=== PATIENT | male | born 1950 | race Caucasian/White ===

== ENCOUNTER → 2021-05-02 | Outpatient (CLI) | payer MEDICARE | END | disposition home or self-care (01) | LOC: RAH 09:59 | PROVIDERS: ATTEND Internal Medicine Gastroenterology | DX: R13.10 Dysphagia, unspecified (principal); R63.30 Feeding difficulties, unspecified | CPT/HCPCS: 74230; 92611 ==

== ENCOUNTER → 2021-05-03 | Outpatient (CLI) | payer MEDICARE | END | disposition home or self-care (01) | LOC: RAH 09:35 → EDUNIT# 10:00 | PROVIDERS: ATTEND Internal Medicine Gastroenterology | DX: K21.9 Gastro-esophageal reflux disease without esophagitis (principal); R13.10 Dysphagia, unspecified; R63.30 Feeding difficulties, unspecified; K22.5 Diverticulum of esophagus, acquired | CPT/HCPCS: 74220 ==

== ENCOUNTER → 2021-07-25 | Outpatient (CLI) | payer MEDICARE ==
[~2021-07-25] MED LIST: GADOTERATE MEGLUMINE 10 MMOL/20 ML VIAL IV ONE
== END | disposition home or self-care (01) ==
LOC: RAH 10:00
PROVIDERS: ATTEND Psychiatry & Neurology Neurology
DX: G35 Multiple sclerosis (principal); G31.9 Degenerative disease of nervous system, unspecified; I67.82 Cerebral ischemia; M47.812 Spondylosis without myelopathy or radiculopathy, cervical region; M50.21 Other cervical disc displacement, high cervical region; S12.9XXS Fracture of neck, unspecified, sequela
CPT/HCPCS: 70553; 72156; A9575

== ENCOUNTER → 2022-05-31 | Outpatient (CLI) | payer MEDICARE | END | disposition home or self-care (01) | LOC: RAH 13:12 | PROVIDERS: ATTEND Physical Medicine & Rehabilitation | DX: S14.101A Unspecified injury at C1 level of cervical spinal cord, initial encounter (principal); M48.07 Spinal stenosis, lumbosacral region; M48.02 Spinal stenosis, cervical region; M54.51 Vertebrogenic low back pain; M54.2 Cervicalgia; X58.XXXA Exposure to other specified factors, initial encounter; Y93.89 Activity, other specified; Y92.89 Other specified places as the place of occurrence of the external cause; Y99.8 Other external cause status | CPT/HCPCS: 72040; 72114 ==

== ENCOUNTER → 2023-01-30 | Outpatient (CLI) | payer MEDICARE | END | disposition home or self-care (01) | LOC: RAH 14:27 | PROVIDERS: ATTEND Neurological Surgery | DX: M85.88 Other specified disorders of bone density and structure, other site (principal); M41.55 Other secondary scoliosis, thoracolumbar region | CPT/HCPCS: 77080 ==

== ENCOUNTER → 2023-02-06 | Outpatient (CLI) | payer MEDICARE | END | disposition home or self-care (01) | LOC: RAH 13:50 | PROVIDERS: ATTEND Neurological Surgery | DX: M47.14 Other spondylosis with myelopathy, thoracic region (principal); G95.9 Disease of spinal cord, unspecified; M50.023 Cervical disc disorder at C6-C7 level with myelopathy; M47.12 Other spondylosis with myelopathy, cervical region | CPT/HCPCS: 72125; 72128 ==

== ENCOUNTER → 2023-07-15 | Outpatient (CLI) | payer MEDICARE | END | disposition home or self-care (01) | LOC: RAH 15:27 | PROVIDERS: ATTEND Neurological Surgery | DX: M47.812 Spondylosis without myelopathy or radiculopathy, cervical region (principal); M40.03 Postural kyphosis, cervicothoracic region; M85.88 Other specified disorders of bone density and structure, other site | CPT/HCPCS: 72040 ==

== ENCOUNTER → 2023-10-28 | Outpatient (CLI) | payer MEDICARE ==
[2023-10-28 14:49] LABS: BASOPHILS # (AUTO) 0.05 K/uL (0.00-0.20); BASOPHILS % (AUTO) 0.5 % (0.0-5.0); EOSINOPHILS # (AUTO) 0.03 K/uL (0.00-0.70); EOSINOPHILS % (AUTO) 0.3 % (0.0-8.0); HEMATOCRIT 41.6 % (42-54); IMMATURE GRANULOCYTE ABSOLUTE 0.06 K/uL (0-1); LYMPHOCYTES # (AUTO) 0.7 K/uL (1.0-4.8); LYMPHOCYTES % (AUTO) 7.9 % (21.0-51.0); MEAN CORPUSCULAR HEMOGLOBIN 29.6 pg (27.0-33.0); MEAN CORPUSCULAR HGB CONC 32.9 g/dL (32.0-36.0); MEAN CORPUSCULAR VOLUME 89.8 fL (79-99); MONOCYTES # (AUTO) 1.2 K/uL (0.1-1.0); MONOCYTES % (AUTO) 12.7 % (3.0-13.0); NEUTROPHILS # (AUTO) 7.3 K/uL (1.8-7.7); PLATELET COUNT (AUTO) 393 K/uL (130-400); RED BLOOD CELL COUNT(AUTO) 4.63 MIL/uL (4.50-6.20); RED CELL DISTRIBUTION WIDTH 13.5 % (11.0-15.5); WHITE BLOOD COUNT (AUTO) 9.3 K/uL (4.8-10.8)
[2023-10-28 15:03] LABS: APPEARANCE,URINE CLEAR (CLEAR); BILIRUBIN,URINE NEGATIVE (NEGATIVE); COLOR,URINE LIGHT-YELLOW (YELLOW); GLUCOSE, URINE (UA) NEGATIVE (NEGATIVE); KETONES,URINE NEGATIVE (NEGATIVE); LEUKOCYTE ESTERASE ,URINE NEGATIVE Leu/uL (NEGATIVE); NITRATE,URINE NEGATIVE (NEGATIVE); OCCULT BLOOD,URINE NEGATIVE (NEGATIVE); PROTEIN,URINE 30 mg/dL (NEGATIVE)
[2023-10-28 15:04] LABS: ADD UA MICROSCOPIC YES
[2023-10-28 15:05] LABS: SODIUM,URINE RANDOM 97 mmol/l (40-220)
[2023-10-28 15:08] LABS: MUCUS,URINE RARE LPF (None Seen); RBC,URINE 0-1 /HPF (0-1); SQUAMOUS EPITHELIAL CELL,UR RARE /HPF (0-2); WBC,URINE 0-1 /HPF (0-1)
[2023-10-28 15:22] LABS: ALBUMIN 3.9 g/dL (3.5-5.0); CREATININE 1.1 mg/dL (0.5-1.3); PHOSPHORUS 3.4 mg/dL (2.5-4.9); POTASSIUM 4.8 mmol/L (3.5-5.1)
== END | disposition home or self-care (01) ==
LOC: LAB 14:02
PROVIDERS: ATTEND Internal Medicine Nephrology
DX: N18.1 Chronic kidney disease, stage 1 (principal); N39.0 Urinary tract infection, site not specified
CPT/HCPCS: 36415; 80069; 81001; 83935; 84300; 85025

== ENCOUNTER 2023-11-05 11:18 | Observation (INO) | payer MEDICARE ==
[2023-11-05] VITALS (19 sets, daily range): BP systolic 114–158; BP diastolic 58–96; PULSE 78–92; RESP 9–19; TEMP 97.2–98.6; O2SAT 95–96
[~2023-11-05] VITALS: Ht 172.7 cm; Wt 76.4 kg
[2023-11-05] MEDS: teTANUS/diphthERIA TOXOID [ADULT] 0.5 ML VIAL IM ONE (11:29)
[2023-11-05] MEDS: ceFAZolin SODIUM 1 GM VIAL IVPB SCH (11:34)
[2023-11-05 11:43] LABS: BASOPHILS # (AUTO) 0.05 K/uL (0.00-0.20); BASOPHILS % (AUTO) 0.7 % (0.0-5.0); EOSINOPHILS # (AUTO) 0.08 K/uL (0.00-0.70); HEMATOCRIT 40.6 % (42-54); IMMATURE GRANULOCYTE ABSOLUTE 0.06 K/uL (0-1); LYMPHOCYTES # (AUTO) 0.8 K/uL (1.0-4.8); LYMPHOCYTES % (AUTO) 10.2 % (21.0-51.0); MEAN CORPUSCULAR HGB CONC 33.7 g/dL (32.0-36.0); MEAN CORPUSCULAR VOLUME 85.8 fL (79-99); MONOCYTES # (AUTO) 1.2 K/uL (0.1-1.0); MONOCYTES % (AUTO) 15.1 % (3.0-13.0); NEUTROPHILS # (AUTO) 5.5 K/uL (1.8-7.7); NEUTROPHILS % (AUTO) 72.2 % (40.0-77.0); PLATELET COUNT (AUTO) 399 K/uL (130-400); RED BLOOD CELL COUNT(AUTO) 4.73 MIL/uL (4.50-6.20); RED CELL DISTRIBUTION WIDTH 13.6 % (11.0-15.5); WHITE BLOOD COUNT (AUTO) 7.7 K/uL (4.8-10.8)
[2023-11-05 11:59] LABS: ALBUMIN 3.9 g/dL (3.5-5.0); BILIRUBIN,TOTAL 0.6 mg/dL (0.2-1.0); POTASSIUM 3.7 mmol/L (3.5-5.1); TOTAL PROTEIN, SERUM 7.3 g/dL (6.0-8.3)
[2023-11-05 12:03] LABS: INR 0.99 (0.85-1.15); PROTHROMBIN TIME 10.7 SEC (9.6-11.6)
[2023-11-05 12:05] LABS: PARTIAL THROMBOPLASTIN TIME 26.2 SEC (26.3-35.5)
[2023-11-05] MEDS ORDERED: acetaMINOPHEN 325 MG TAB PO PRN ×2 (13:30)
[2023-11-05] MEDS ORDERED: morPHINE 2 MG SYG IV PRN (13:30)
[2023-11-05] MEDS: hydroMORPHone 1 MG INJ IV PRN (15:09)
[2023-11-05] MEDS: ondanSETRON 4MG INJ IV PRN (15:09)
[2023-11-05] MEDS: 0.9%NACL 1000ML 1,000 ML IV SCH ×2 (15:19→18:00)
[2023-11-05] MEDS ORDERED: BUPIvacaine/PF 0.5% 30ML VIAL ONE (15:53)
[2023-11-05] MEDS ORDERED: ceFAZolin SODIUM 1 GM VIAL ONE (15:53)
[2023-11-05] MEDS ORDERED: GLYCOPYRROLATE 0.2 MG/ML 5 ML VIAL ONE (15:56)
[2023-11-05] MEDS ORDERED: MIDAZOLAM HCL 1 MG/ML 2ML VIAL ONE ×2 (15:56→16:28)
[2023-11-05] MEDS ORDERED: ketaMINE 50MG/ML SYRINGE 50 MG/ML DISP.SYRIN ONE (16:00)
[2023-11-05] MEDS ORDERED: LIDOCAINE HCL 1% 10 ML VIAL ONE (16:11)
[2023-11-05] MEDS ORDERED: DiphenhydrAMINE HCL 25 MG CAPSULE PO PRN (18:00)
[2023-11-05] MEDS: ceFAZolin SODIUM 2 GM VIAL IVPB SCH (18:00)
[2023-11-05] MEDS: FAMOTIDINE 20MG VIAL IV SCH (21:23)
[2023-11-05] MEDS: ketOROlac 15MG/ML VIAL (15MG/ML) IV PRN (21:28)
[2023-11-05] MEDS ORDERED: hydrALAZine 20MG/ML VIAL IV PRN (22:30)
[2023-11-06] VITALS: BP 122/63; PULSE 74; RESP 18; TEMP 97.2
[2023-11-06] MEDS: HYDROcodone/APAP 5/325 1 TAB TABLET PO PRN ×2 (00:41→09:55)
[2023-11-06 04:00] VITALS: BP 123/72; PULSE 76; RESP 18; TEMP 98
[2023-11-06 05:31] LABS: BASOPHILS # (AUTO) 0.06 K/uL (0.00-0.20); BASOPHILS % (AUTO) 0.7 % (0.0-5.0); EOSINOPHILS # (AUTO) 0.12 K/uL (0.00-0.70); EOSINOPHILS % (AUTO) 1.4 % (0.0-8.0); HEMATOCRIT 38.9 % (42-54); IMMATURE GRANULOCYTE ABSOLUTE 0.06 K/uL (0-1); LYMPHOCYTES # (AUTO) 0.8 K/uL (1.0-4.8); MEAN CORPUSCULAR HEMOGLOBIN 29.2 pg (27.0-33.0); MEAN CORPUSCULAR HGB CONC 32.4 g/dL (32.0-36.0); MEAN CORPUSCULAR VOLUME 90.3 fL (79-99); MONOCYTES # (AUTO) 1.4 K/uL (0.1-1.0); MONOCYTES % (AUTO) 15.8 % (3.0-13.0); NEUTROPHILS # (AUTO) 6.4 K/uL (1.8-7.7); NEUTROPHILS % (AUTO) 72.4 % (40.0-77.0); PLATELET COUNT (AUTO) 328 K/uL (130-400); RED BLOOD CELL COUNT(AUTO) 4.31 MIL/uL (4.50-6.20); RED CELL DISTRIBUTION WIDTH 13.6 % (11.0-15.5); WHITE BLOOD COUNT (AUTO) 8.9 K/uL (4.8-10.8)
[2023-11-06 06:08] LABS: ALBUMIN 3.2 g/dL (3.5-5.0); BILIRUBIN,TOTAL 0.4 mg/dL (0.2-1.0); POTASSIUM 4.1 mmol/L (3.5-5.1); TOTAL PROTEIN, SERUM 6.1 g/dL (6.0-8.3)
[2023-11-06 08:00] VITALS: BP 125/65; PULSE 85; RESP 19; TEMP 98.7; O2SAT 96
[2023-11-06] MEDS ORDERED: CEPH500B PO (08:33)
[2023-11-06] MEDS: 0.9%NACL 1000ML 1,000 ML IV SCH (09:30)
[2023-11-06] MEDS: amLODIPine 5 MG TAB PO SCH (09:53)
== END 2023-11-06 11:48 | disposition home or self-care (01) ==
LOC: EDH 11:18 → INTOOBSV 13:11 → EDHIP 13:11 → 4CH 18:28
PROVIDERS: ADMIT Orthopaedic Surgery; ATTEND Orthopaedic Surgery
DX: S68.021A Partial traumatic metacarpophalangeal amputation of right thumb, initial encounter (principal); I10 Essential (primary) hypertension; J44.9 Chronic obstructive pulmonary disease, unspecified; G47.00 Insomnia, unspecified; K59.00 Constipation, unspecified; G89.29 Other chronic pain; Z87.891 Personal history of nicotine dependence; Z86.2 Personal history of diseases of the blood and blood-forming organs and certain disorders involving the immune mechanism; Z79.899 Other long term (current) drug therapy; W27.0XXA Contact with workbench tool, initial encounter; Y93.89 Activity, other specified; Y92.098 Other place in other non-institutional residence as the place of occurrence of the external cause; Y99.0 Civilian activity done for income or pay
CPT/HCPCS: 26236; 96365; 96375; 99284; 84484; 80053 ×2; 85025 ×2; 85610; 85730; 86850; 86900; 86901; 36415 ×2; 88302; 88311; 90714; 73130; 90471; 96376 ×2; 96366; 96367; G0378 ×18; C1729; J3490 ×5; J0690 ×3; J1170; J2250 ×2; J2405; J0665; J1885 ×2; A6445 ×2; A6223; A4649 ×2; A4930

== ENCOUNTER → 2024-01-20 | Outpatient (CLI) | payer MEDICARE ==
[~2024-01-20] MED LIST changes: +CEPH500B PO; -GADOTERATE MEGLUMINE 10 MMOL/20 ML VIAL IV ONE
== END | disposition home or self-care (01) ==
LOC: RAH 08:37
PROVIDERS: ATTEND Physical Medicine & Rehabilitation
DX: M47.816 Spondylosis without myelopathy or radiculopathy, lumbar region (principal); M48.07 Spinal stenosis, lumbosacral region; M54.2 Cervicalgia; G89.4 Chronic pain syndrome; G35 Multiple sclerosis
CPT/HCPCS: 72114

== ENCOUNTER → 2024-01-29 | Outpatient (CLI) | payer MEDICARE | END | disposition home or self-care (01) | LOC: RAH 12:48 | PROVIDERS: ATTEND Physical Medicine & Rehabilitation | DX: M47.817 Spondylosis without myelopathy or radiculopathy, lumbosacral region (principal); M48.07 Spinal stenosis, lumbosacral region; M51.26 Other intervertebral disc displacement, lumbar region; M51.369 Other intervertebral disc degeneration, lumbar region without mention of lumbar back pain or lower extremity pain | CPT/HCPCS: 72148 ==

== ENCOUNTER → 2024-03-06 | Outpatient (CLI) | payer MEDICARE ==
[2024-03-06 13:53] LABS: BASOPHILS # (AUTO) 0.06 K/uL (0.00-0.20); BASOPHILS % (AUTO) 0.7 % (0.0-5.0); EOSINOPHILS # (AUTO) 0.16 K/uL (0.00-0.70); EOSINOPHILS % (AUTO) 1.9 % (0.0-8.0); IMMATURE GRANULOCYTE ABSOLUTE 0.07 K/uL (0-1); LYMPHOCYTES % (AUTO) 11.2 % (21.0-51.0); MEAN CORPUSCULAR HEMOGLOBIN 29.5 pg (27.0-33.0); MEAN CORPUSCULAR HGB CONC 32.4 g/dL (32.0-36.0); MEAN CORPUSCULAR VOLUME 90.9 fL (79-99); MONOCYTES # (AUTO) 1.1 K/uL (0.1-1.0); NEUTROPHILS # (AUTO) 6.1 K/uL (1.8-7.7); NEUTROPHILS % (AUTO) 72.4 % (40.0-77.0); PLATELET COUNT (AUTO) 315 K/uL (130-400); RED BLOOD CELL COUNT(AUTO) 4.95 MIL/uL (4.50-6.20); RED CELL DISTRIBUTION WIDTH 14.8 % (11.0-15.5); WHITE BLOOD COUNT (AUTO) 8.5 K/uL (4.8-10.8)
[2024-03-06 14:00] LABS: ALBUMIN 3.7 g/dL (3.5-5.0); CREATININE 1.3 mg/dL (0.5-1.3); PHOSPHORUS 2.9 mg/dL (2.5-4.9); POTASSIUM 4.1 mmol/L (3.5-5.1)
--- NOTE | 2024-03-06 14:11 | HMCIMG ---
CERV SPINE 2-3VWS HISTORY: Cervical fusion syndrome COMPARISON: None FINDINGS: 3 images of cervical spine were obtained. Orthopedic fixation plates and screws are seen traversing the C4, C5, C6 and C7 anteriorly with disc fusions. Postop changes are seen of the cervical thoracic spine extensively posteriorly. Due to extensive postop changes, the study is limited. There is straightening of normal lordotic curvature which may be related to muscle spasm or positioning. No loss of vertebral height is seen. No fracture or dislocation is seen. Degenerative changes are seen. IMPRESSION: 1. No fracture is seen. DJD with extensive postop changes. This is limiting evaluation.
== END | disposition home or self-care (01) ==
LOC: LAB 10:00
PROVIDERS: ATTEND Physical Medicine & Rehabilitation
DX: M47.812 Spondylosis without myelopathy or radiculopathy, cervical region (principal); N18.1 Chronic kidney disease, stage 1; Q76.1 Klippel-Feil syndrome
CPT/HCPCS: 36415; 72040; 80069; 83935; 84300; 85025

== ENCOUNTER → 2024-06-01 | Outpatient (CLI) | payer MEDICARE ==
--- NOTE | 2024-06-01 15:45 | HMCIMG ---
US ARTERIAL BILAT LOW EXT DUPL HISTORY: Atherosclerosis COMPARISON: None TECHNIQUE: Bilateral lower extremity arterial Doppler ultrasound study was performed. FINDINGS: Normal triphasic arterial waveforms are noted in the common femoral, deep femoral, superficial femoral, popliteal, posterior tibial and dorsalis pedal arteries. On the right, the peak systolic velocity of the common femoral artery is 102 cm/s, the proximal femoral artery is 85 cm/s, the mid femoral artery is 102 cm/s, the distal femoral artery is 84 cm/s, the proximal popliteal artery is 98 cm/s, the distal popliteal artery is 59 cm/s, the anterior tibial artery is 34 cm/s, the posterior tibial artery artery is 73 cm/s,and the dorsalis pedal artery is 21 cm/s. On the left, the peak systolic velocity of the common femoral artery is 87 cm/s, the proximal femoral artery is 84 cm/s, the mid femoral artery is 98 cm/s, the distal femoral artery is 123 cm/s, the proximal popliteal artery is 62 cm/s, the distal popliteal artery is 91 cm/s, the anterior tibial artery is 87 cm/s, the posterior tibial artery artery is 107 cm/s,and the dorsalis pedal artery is 80 cm/s. IMPRESSION: 1. Atherosclerotic disease. 2. Otherwise normal triphasic arterial waveforms noted of the lower extremity artery system.
== END | disposition home or self-care (01) ==
LOC: RAH 14:37
PROVIDERS: ATTEND Physical Medicine & Rehabilitation
DX: I70.0 Atherosclerosis of aorta (principal); I70.90 Unspecified atherosclerosis; R60.0 Localized edema
CPT/HCPCS: 93925

== ENCOUNTER 2024-10-31 18:19 | Inpatient (IN) | payer MEDICARE ==
[~2024-10-31] VITALS: Ht 172.7 cm; Wt 83.0 kg
--- NOTE | 2024-10-31 18:34 | ERN ---
ED Note History of Present Illness Stated Complaint: LOWER EXTREMITY PAIN Chief Complaint: LOWER EXTREMITY EDEMA Time Seen by MD: 18:26 Dictation: PATIENT IS A 74-YEAR-OLD MALE COMING IN TODAY WITH ERYTHEMA TENDERNESS TO THE RIGHT CALF AND SWELLING ONSET FOR THE LAST 2-3 DAYS. NO FEVER NO CHILLS NO NAUSEA VOMITING. STATES HE DOES NOT HAVE ANY HISTORY OF DIABETES. DISCOLORATION TO BOTH LOWER EXTREMITIES CONSISTENT WITH VENOUS INSUFFICIENCY. STATES HE HAS A AN APPOINTMENT TODAY WITH HIS PRIMARY CARE DOCTOR HOWEVER HIS DOCTOR WAS OUT SICK AND HE CAME TO THE EMERGENCY ROOM. Allergies: Coded Allergies: No Known Drug Allergies (Unverified Allergy, Unknown, 11/05/23) Home Meds Active Scripts Cephalexin Monohydrate (Keflex) 500 Mg Cap, 500 MG PO Q8H for 7 Days, #21 CAP 0 Refills Prov:JENNIFER JOSHI MD 11/06/23 Past Medical History Past Medical History: High Cholesterol, Hypertension, Other Additional Past Medical Hx: fractured neck Surgical History: Other Surgical History Other: neck sx RN Note Reviewed/Agreed w/PFSH: Yes Review of System Dictation CONSTITUTIONAL: NEGATIVE EXCEPT FOR HPI HEAD/FACE: NEGATIVE EXCEPT FOR HPI EENT: NEGATIVE EXCEPT FOR HPI RESPIRATORY: NEGATIVE EXCEPT FOR HPI GASTROINTESTINAL/ABDOMINAL: NEGATIVE EXCEPT FOR HPI GENITOURINARY: NEGATIVE EXCEPT FOR HPI MUSCULOSKELETAL: NEGATIVE EXCEPT FOR HPI ERYTHEMA SWELLING RIGHT CALF FROM LOWER LEG DOWN INTEGUMENTARY: NEGATIVE EXCEPT FOR HPI NEUROLOGICAL/PSYCH: NEGATIVE EXCEPT FOR HPI HEMATOLOGIC/LYMPHATIC: NEGATIVE EXCEPT FOR HPI ALL SYSTEMS NEGATIVE, EXCEPT NOTED ABOVE. 13 POINT REVIEW OF SYSTEMS ASSESSED AND ALL NEGATIVE EXCEPT FOR ABOVE. Initial Vital Sign VS Vital Signs Date Time Temp Pulse Resp B/P (MAP) Pulse Ox O2 Delivery O2 Flow Rate FiO2 10/31/24 18:23 97.9 85 16 133/72 95 Room Air 0 10/31/24 18:26 21 Physical Exam Dictation VITAL SIGNS REVIEWED GENERAL APPEARANCE: ALERT, ORIENTED X 3, MODERATE ACUTE DISTRESS, WELL DEVELOPED, NOURISHED. HEAD AND FACE: NON-TRAUMATIC. EYES: PERRL, PINK CONJUNCTIVAS, EYELID NO TRAUMA, ANTERIOR CHAMBER WITH ARCUS SENILIS. EARS: PINNAS INTACT AND NO SIGNS OF TRAUMA OR ERYTHEMA EAR CANALS CLEAR AND NO DISCHARGE TM NO ERYTHEMA NOSE: NO DISCHARGE, NO BLEEDING. OROPHARYNX: MOUTH NORMAL, TONGUE PINK, PHARYNX CLEAR,NO ERYTHEMA, TONSILS NO EXUDATES, NO ABSCESSES NOTED, MUCOUS MEMBRANE MOIST NECK: SUPPLE, NON-TENDER, NO THYROMEGALY, NO MASSES, NO JVD, NO BRUITS BREAST:DEFERRED CHEST:NO TENDERNESS, NO CREPITUS, NO PARADOXICAL MOVEMENT, NO RETRACTIONS LUNGS:CLEAR, WELL-VENTILATED, SYMMETRIC, NO RALES, NO WHEEZING, NO RHONCHI, NO STRIDOR, GOOD BREATH SOUNDS BILATERALLY HEART: REGULAR RATE, REGULAR RHYTHM, NO MURMUR, NO GALLOPS VASCULAR: NO PERIPHERAL EDEMA, ABDOMEN: SOFT, POSITIVE BOWEL SOUNDS, NONDISTENDED, NO GUARDING, NONTENDER, NO REBOUND, NO MASSES NO HEPATOMEGALY, NO SPLENOMEGALY, NO SALINAS'S SIGN, NO HERNIAS. RECTAL: DEFERRED GENITAL: DEFERRED NEUROLOGICAL: NORMAL SPEECH, MOTOR FUNCTION INTACT, SENSORY FUNCTION INTACT MUSCULOSKELETAL: NECK NONTENDER, FULL RANGE OF MOTION, BACK NONTENDER, FULL RANGE OF MOTION, EXTREMITIES: RIGHT LOWER LEG WITH A EAR THREE SWELLING AND CALF TENDERNESS. NEGATIVE HOMANS SIGN. DISTAL NEUROVASCULAR CMS INTACT SKIN: COLOR PINK, DRY, NO TURGOR, NO RASH, NO LACERATIONS, NO ABRASIONS, NO CONTUSIONS. DISCOLORATION NOTED TO BOTH LOWER EXTREMITIES CONSISTENT WITH VASCULAR INSUFFICIENCY LYMPHATIC: DEFERRED Results (Laboratory/Radiology) Laboratory/Radiology Laboratory Tests Test 10/31/24 18:32 White Blood Count 9.8 K/uL (4.8-10.8) Red Blood Count 4.51 MIL/uL (4.50-6.20) Hemoglobin 15.4 g/dL (14.0-18.0) Hematocrit 44.3 % (42-54) Mean Corpuscular Volume 98.2 fL (79-99) Mean Corpuscular Hemoglobin 34.1 pg (27.0-33.0) H Mean Corpuscular Hemoglobin Concent 34.8 g/dL (32.0-36.0) Red Cell Distribution Width 11.9 % (11.0-15.5) Platelet Count 318 K/uL (130-400) Mean Platelet Volume 8.6 fL (7.5-10.5) Immature Granulocyte % (Auto) 3.7 % (0-1) H Neutrophils (%) (Auto) 73.1 % (40.0-77.0) Lymphocytes (%) (Auto) 9.2 % (21.0-51.0) L Monocytes (%) (Auto) 12.0 % (3.0-13.0) Eosinophils (%) (Auto) 1.3 % (0.0-8.0) Basophils (%) (Auto) 0.7 % (0.0-5.0) Neutrophils # (Auto) 7.2 K/uL (1.8-7.7) Lymphocytes # (Auto) 0.9 K/uL (1.0-4.8) L Monocytes # (Auto) 1.2 K/uL (0.1-1.0) H Eosinophils # (Auto) 0.13 K/uL (0.00-0.70) Basophils # (Auto) 0.07 K/uL (0.00-0.20) Absolute Immature Granulocyte (auto 0.36 K/uL (0-1) Nucleated Red Blood Cells 0.0 % (0.0-0.19) Sodium Level 132 mmol/L (136-145) L Potassium Level 4.2 mmol/L (3.5-5.1) Chloride Level 96 mmol/L (101-111) L Carbon Dioxide Level 30 mmol/L (21-32) Blood Urea Nitrogen 16 mg/dL (7-18) Creatinine 1.1 mg/dL (0.5-1.3) Glomerular Filtration Rate Calc 71 mL/min (>90) Random Glucose 116 mg/dL (70-105) H Lactic Acid Level 1.5 mmol/L (0.8-2.5) Total Calcium 9.0 mg/dL (8.5-10.1) 115/DOPPLER ULTRASOUND RIGHT LEG DEMONSTRATES MCDONNELL'S CYST, NO DVT Labs Reviewed?: Yes ED Course ED Course Orders Procedure Category Date Status Time Us Venous Doppler US 10/31/24 Resulted Unilateral 18:28 Blood Cult ARSLAN 10/31/24 In Process 18:28 Lactic Acid LAB 10/31/24 Complete 18:28 Cbc With Differential LAB 10/31/24 In Process 18:28 Basic Metabolic Panel LAB 10/31/24 Complete 18:28 Clindamycin Ivpb PHA 10/31/24 Complete 600mg/50ml (Cleocin 19:11 0.9%Nacl 1000ml (Ns PHA 10/31/24 Complete 1000ml) 20:00 Admit Orders ADM 10/31/24 Verified 20:06 Edm Admit Bridge Order ADM 10/31/24 Verified 20:06 Current Medications Medications (Trade) Dose Ordered Sig/Smiley Route PRN Reason Start Time Stop Time Status Last Admin Dose Admin Clindamycin HCl/ Dextrose 50 ml @ 100 mls/hr ONCE STAT IV 10/31/24 19:11 10/31/24 19:40 DC 10/31/24 19:35 Sodium Chloride 1,000 ml @ 0 mls/hr ONCE ONCE IV 10/31/24 20:00 10/31/24 20:01 DC 10/31/24 19:55 Vital Signs Date Time Temp Pulse Resp B/P (MAP) Pulse Ox O2 Delivery O2 Flow Rate FiO2 10/31/24 19:59 98.2 82 16 132/70 96 Room Air* 0 21 10/31/24 18:26 97.9 85 16 133/72 95 Room Air* 0 21 10/31/24 18:23 97.9 85 16 133/72 95 Room Air 0 1934/SPOKE WITH PATIENT AT LENGTH AROUND CLINICAL FINDINGS TO INCLUDE DOPPLER ULTRASOUND. HE AGREES TO REMAIN IN HOSPITAL FOR TREATMENT OF HIS HYPONATREMIA AND CELLULITIS OF HIS RIGHT LEG. QUESTIONED ANSWER. 2004/SPOKE WITH [facility] HOSPITALIST REVIEWED ULTRASOUND LABS AND INTERVENTIO NS FOR HYPONATREMIA AND CELLULITIS HE AGREED TO ADMIT PATIENT. Medical Decision Making MDM MDM: DIFFERENTIAL DIAGNOSIS: DVT/CELLULITIS/ERYSIPELAS/ELECTROLYTE IMBALANCE/DEHYDRATION/SEPSIS RATIONALE: TESTS CONSIDERED AND ORDERED SECONDARY TO SHARED DECISION MAKING INCLUDE: ULTRASOUNDS/LABS PREVIOUS OUTSIDE RECORDS REVIEWED: OLD ER VISITS. RISK OF COMPLICATION AND/OR MORBIDITY OR MORTALITY OF PATIENT MANAGEMENT: NONE MEDICATIONS-PER MEDICATION RECONCILIATION NEED FOR HOSPITALIZATION: PATIENT DOES NOT MEET CRITERIA FOR HOSPITALIZATION. PATIENT REFUSES WISHED TO BE TREATED OUTPATIENT WITH CLINDAMYCIN NEED FOR EMERGENCY MAJOR/MINOR SURGERY: NO THERE ARE NO SOCIAL CONCERNS WITH THIS PATIENT. PRESCRIPTION DRUG MANAGEMENT CLINDAMYCIN PRESCRIPTIONS WILL INCLUDE SYMPTOMATIC CARE PATIENT'S PRIOR EXTERNAL MEDICAL RECORDS FROM OTHER ER VISITS WERE REVIEWED BY ME INDICATED. PRIOR TESTING AND RESULTS FROM PREVIOUS VISITS WERE REVIEWED. PRIOR TESTS WERE TAKEN INTO ACCOUNT WITH MEDICAL DECISION MAKING AND RESOURCE UTILIZATION, INDEPENDENT HISTORIAN/HISTORIANS WERE USED TO OBTAIN COMPLETE MEDICAL HISTORY. I INDEPENDENTLY INTERPRETED THE TEST THAT WERE PERFORMED, RESULTS WERE REVIEWED BY ME AND CONSIDERED FINDINGS ON RADIOLOGY IF ORDERED. MEDICAL MANAGEMENT AND EXAMINATION INTERPRETATION DISCUSSIONS WERE HAD BY ME WITH OTHER QUALIFIED HEALTHCARE PROFESSIONALS INDICATED FOR THE PATIENT'S CARE. DX & DISP Disposition: Discharge Departure Impression: Primary Impression: Cellulitis of right leg without foot Additional Impressions: Stage 2 chronic kidney disease, Hyponatremia, Hypochloremia, Congenital absence of one kidney Condition: Stable Referrals: RANGEL NEGRON (PCP) Time of Disposition: 19:39 I have reviewed the case, and I agree with, Diagnosis and Plan LACIE MENDOZA NP Oct 31, 2024 18:34
[2024-10-31 18:58] LABS: IMMATURE GRANULOCYTE ABSOLUTE 0.36 K/uL (0-1); NUCLEATED RED BLOOD CELLS 0.0 % (0.0-0.19); PLATELET COUNT (AUTO) 318 K/uL (130-400); RED BLOOD CELL COUNT(AUTO) 4.51 MIL/uL (4.50-6.20); RED CELL DISTRIBUTION WIDTH 11.9 % (11.0-15.5); WHITE BLOOD COUNT (AUTO) 9.8 K/uL (4.8-10.8)
[2024-10-31 19:09] LABS: CREATININE 1.1 mg/dL (0.5-1.3); GLOMERULAR FILTR. RATE CALC 71.0 mL/min (>90); GLUCOSE,RANDOM 116.0 mg/dL (70-105); SODIUM SERUM 132.0 mmol/L (136-145); UREA NITROGEN, BLOOD 16.0 mg/dL (7-18)
--- NOTE | 2024-10-31 19:22 | HMCIMG ---
EXAM: US for Deep Venous Thrombosis, right Lower Extremity. CLINICAL HISTORY: Leg Pain and Swelling TECHNIQUE: Real-time ultrasound scan of the veins of the right lower extremity with color Doppler flow, spectral waveform analysis and compression. COMPARISON: None provided. FINDINGS: DEEP VEINS: The common femoral, superficial femoral, and popliteal veins are echolucent and compressible. There is normal color Doppler flow throughout. The visualized calf veins appear patent. SOFT TISSUES: No popliteal fossa cyst or other abnormalities. IMPRESSION: No deep venous thrombosis evident on right lower extremity examination. /[place]
[2024-10-31] MEDS: CLINDAMYCIN IVPB 600MG/50ML 50 ML IV STA (19:35)
[2024-10-31] MEDS: 0.9%NACL 1000ML 1,000 ML IV ONE (19:55)
[2024-10-31] MEDS ORDERED: VANCOMYCIN PROTOCOL PER PHARMACY IV SCH (20:30)
--- NOTE | 2024-10-31 20:37 | HP ---
[facility] HISTORY & PHYSICAL Date Patient Seen: Oct 31, 2024 Time of Visit: 20:34 Supervising Physician: Dr. Santiago Young Primary Care Physician: RANGEL NEGRON (PCP) Outpatient Specialists: [ ] Inpatient Consults: [ ] PROBLEM LIST: Right leg cellulitis. Hypertension. Hyperlipidemia. Obesity. BMI 27.4. HPI: This is a 74-year-old male patient who has past medical history that is significant for hypertension and hyperlipidemia. The patient presented to the emergency department with complaint of right leg swelling over the past 2-3 days and now with erythema and tenderness. Per the patient report, he did not have any injury to the lower extremity that may have caused these changes. The patient had a scheduled appointment today with his PCP, unfortunately was not able to be seen and came into the emergency department for further evaluation and management of his condition. Workup in the emergency department showed vital signs with no febrile events. Laboratory data was completely unremarkable. Imaging obtained showed a venous Doppler study that was negative for a DVT. Because of the erythema, swelling and significant tenderness to the extremity, the patient was admitted under observation for further evaluation and management of his condition. At the time of my visit, the patient remained in the emergency department awaiting bed assignment. PAST MEDICAL HX: see above PAST SURGICAL HX: noncontributory SOCIAL HISTORY: No tobacco, ETOH, or illicit drug use Coded Allergies: No Known Drug Allergies (Unverified Allergy, Unknown, 11/05/23) REVIEW OF SYSTEMS: 12 point ROS reviewed with patient. Pertinent positives mentioned above. Otherwise negative. PHYSICAL EXAM: GENERAL: Alert, weak, awake oriented x 3 HEENT: EOMI, Sclera non icteric, moist mucosa NECK: Supple, no JVD, trachea midline LUNGS: Clear breath sounds bilaterally. No wheezes HEART: Regular rate and rhythm. Normal S1 and S2, without murmurs ABD: Abdomen soft, nontender. Bowel sounds present EXT: No clubbing cyanosis or edema SKIN: Extensive right leg erythema and swelling. NEURO: Alert and oriented to person, follows commands Vital Signs (last 8hr) Date Time Temp Pulse Resp B/P (MAP) Pulse Ox O2 Delivery O2 Flow Rate FiO2 10/31/24 19:59 98.2 82 16 132/70 96 Room Air* 0 21 10/31/24 18:26 97.9 85 16 133/72 95 Room Air* 0 21 10/31/24 18:23 97.9 85 16 133/72 95 Room Air 0 LABS: Hematology Labs: Test 10/31/24 18:32 Range/Units White Blood Count 9.8 4.8-10.8 K/uL Red Blood Count 4.51 4.50-6.20 MIL/uL Hemoglobin 15.4 14.0-18.0 g/dL Hematocrit 44.3 42-54 % Mean Corpuscular Volume 98.2 79-99 fL Mean Corpuscular Hemoglobin 34.1 H 27.0-33.0 pg Mean Corpuscular Hemoglobin Concent 34.8 32.0-36.0 g/dL Red Cell Distribution Width 11.9 11.0-15.5 % Platelet Count 318 130-400 K/uL Mean Platelet Volume 8.6 7.5-10.5 fL Immature Granulocyte % (Auto) 3.7 H 0-1 % Neutrophils (%) (Auto) 73.1 40.0-77.0 % Lymphocytes (%) (Auto) 9.2 L 21.0-51.0 % Monocytes (%) (Auto) 12.0 3.0-13.0 % Eosinophils (%) (Auto) 1.3 0.0-8.0 % Basophils (%) (Auto) 0.7 0.0-5.0 % Neutrophils # (Auto) 7.2 1.8-7.7 K/uL Lymphocytes # (Auto) 0.9 L 1.0-4.8 K/uL Monocytes # (Auto) 1.2 H 0.1-1.0 K/uL Eosinophils # (Auto) 0.13 0.00-0.70 K/uL Basophils # (Auto) 0.07 0.00-0.20 K/uL Absolute Immature Granulocyte (auto 0.36 0-1 K/uL Nucleated Red Blood Cells 0.0 0.0-0.19 % White Cell Morphology Comment See comments Chemistry Labs: Test 10/31/24 18:32 Range/Units Sodium Level 132 L 136-145 mmol/L Potassium Level 4.2 3.5-5.1 mmol/L Chloride Level 96 L 101-111 mmol/L Carbon Dioxide Level 30 21-32 mmol/L Blood Urea Nitrogen 16 7-18 mg/dL Creatinine 1.1 0.5-1.3 mg/dL Glomerular Filtration Rate Calc 71 >90 mL/min Random Glucose 116 H 70-105 mg/dL Lactic Acid Level 1.5 0.8-2.5 mmol/L Total Calcium 9.0 8.5-10.1 mg/dL DIAGNOSTICS / RADIOLOGY RESULTS: [ ] PLAN Admit under observation to medical/surgical unit. We will review and reconcile medication list once they become available. Start patient on antibiotic coverage with IV Zosyn and vanco combination. Consult pharmacy to dose vancomycin. We will repeat surveillance labs in the morning. We will offer pain management. We will monitor the patient's progress and response to management. We will continue to provide general supportive care, GI and DVT prophylaxis. Further orders per attending MD and hospital course. NEURO: Minimize central acting medications as possible. Maintain fall precautions, adequate lighting during the day PULMONARY: Supplemental 02 as needed. Maintain aspiration precautions at all times CARDIOVASCULAR: Follow hemodynamics. Vital signs per facility protocol GI & NUTRITION: Continue with nutritional support. Continue stool softeners and laxatives as needed. KIDNEYS & ELECTROLYTES: Strict monitoring of intake, output and overall fluid balance. Avoid nephrotoxic medications to the extent possible. Medications to be dosed according to renal function. Monitor electrolytes and replace as needed ENDOCRINE: Maintain blood glucose between 100-180 at all times. Hypoglycemia protocol in place INFECTIOUS DISEASE: Trend temperature, WBC and procalcitonin level Follow cultures, deescalate antibiotics as soon as possible. Panculture if new onset fever ONCOLOGY/HEMATOLOGY/COAGULATION: Monitor for s/s of bleeding Monitor hemoglobin, coagulation studies as needed SKIN: Pressure ulcer prevention per facility protocol Specialty mattress ORTHO/REHAB: Continue PT/OT Prophylaxis: Continue GI and DVT prophylaxis Code Status: Full Resuscitation Disposition: TBD Other: Patient was seen by me. Supervising MD CECELIA Munoz NP Oct 31, 2024 20:37
[2024-10-31] MEDS: ZOSYN 3.375GM +NS 50ML IV SCH (20:44)
[2024-10-31 22:10] VITALS: BP 160/93; PULSE 84; RESP 20; TEMP 97.9
[2024-10-31 22:30] VITALS: O2SAT 92
--- NOTE | 2024-10-31 22:30 | NUR ---
ADMISSION NOTE RECEIVED PATIENT TO ROOM 307. PATIENT ALERT, ORIENTED, AND ABLE TO MAKE NEEDS KNOWN. PATIENT BROUGHT LIST OF HOME MEDICATIONS. RIGHT LEG IS SWOLLEN, TIGHT, WITH 2-3+ PITTING EDEMA, PICTURES TAKEN OF RIGHT 5TH LATERAL TOE "POPPED" ULCER BY KAYLA BANG. WOUND APPEARS CLOSED. PATIENT GIVEN CALL LIGHT, TAUGHT TO USE.
[2024-10-31] MEDS ORDERED: ROSU10TA72 PO (22:33)
[2024-10-31] MEDS ORDERED: FLUT1BLS15 IH (22:33)
[2024-10-31] MEDS ORDERED: LOSA100T59 PO (22:33)
[2024-10-31] MEDS ORDERED: ROPI5TAB24 PO (22:35)
[2024-10-31] MEDS ORDERED: NAPR-1192 PO (22:35)
[2024-10-31] MEDS: VANCOMYCIN 2GM/500 ML BAG 500 ML IV ONE (22:49)
[2024-11-01] VITALS (7 sets, daily range): BP systolic 137–155; BP diastolic 70–84; PULSE 62–84; RESP 20–21; TEMP 97.5–97.9; O2SAT 97–98
[2024-11-01 04:51] LABS: IMMATURE GRANULOCYTE ABSOLUTE 0.50 K/uL (0-1); NUCLEATED RED BLOOD CELLS 0.0 % (0.0-0.19); PLATELET COUNT (AUTO) 291 K/uL (130-400); RED BLOOD CELL COUNT(AUTO) 4.31 MIL/uL (4.50-6.20); RED CELL DISTRIBUTION WIDTH 11.9 % (11.0-15.5); WHITE BLOOD COUNT (AUTO) 9.4 K/uL (4.8-10.8)
[2024-11-01 05:11] LABS: CREATININE 1.1 mg/dL (0.5-1.3); GLOMERULAR FILTR. RATE CALC 71.0 mL/min (>90); GLUCOSE,RANDOM 114.0 mg/dL (70-105); LACTATE DEHYDROGENASE 255.0 U/L (81-234); SODIUM SERUM 130.0 mmol/L (136-145); UREA NITROGEN, BLOOD 18.0 mg/dL (7-18)
[2024-11-01] MEDS: ENOXAPARIN SODIUM 30 MG/0.3 ML SQ SCH (08:28)
[2024-11-01] MEDS ORDERED: VANCOMYCIN KIT 1 GM/250 ML IV.KIT IV SCH (09:00)
--- NOTE | 2024-11-01 10:22 | PN ---
[facility] PROGRESS NOTE Date Patient Seen: Nov 01, 2024 Time of Visit: 10:16 Supervising Physician: Gus Daniels Primary Care Physician: RANGEL NEGRON (PCP) Outpatient Specialists: [ ] Inpatient Consults: [ ] PROBLEM LIST: Right leg cellulitis Essential Hypertension Hyperlipidemia Obesity - BMI 27.4 PLAN SUMMARY: Supplemental oxygen as needed Continue Cefepime Continue Vanco Obtain art dopplers INTERVAL HISTORY: This is a 74-year-old male patient who has past medical history that is significant for hypertension and hyperlipidemia. The patient presented to the emergency department with complaint of right leg swelling over the past 2-3 days and now with erythema and tenderness. Per the patient report, he did not have any injury to the lower extremity that may have caused these changes. The patient had a scheduled appointment today with his PCP, unfortunately was not able to be seen and came into the emergency department for further evaluation and management of his condition. Workup in the emergency department showed vital signs with no febrile events. Laboratory data was completely unremarkable. Imaging obtained showed a venous Doppler study that was negative for a DVT. Because of the erythema, swelling and significant tenderness to the extremity, the patient was admitted under observation for further evaluation and management of his condition. At the time of my visit, the patient remained in the emergency department awaiting bed assignment. 11/01 - Patient is seen sitting up in a chair continues to complain of pain to the right lower extremity. Patient continues to be weak and hypoxemic requiring2 L via nasal cannula. Patient reports he uses oxygen as needed at home as well. Patient continues with cellulitis however nursing reports it has improved in comparison to yesterday. No acute changes reported overnight. We will continue current antibiotic treatment for now. We will obtain arterial Dopplers. Vital signs are stable. Labs are within normal limits. We will continue current treatment plan for now. REVIEW OF SYSTEMS: 12 point ROS reviewed with patient. Pertinent positives mentioned above. Otherwise negative. PHYSICAL EXAM: GENERAL: Alert, weak, awake oriented x 3 HEENT: EOMI, Sclera non icteric, moist mucosa NECK: Supple, no JVD, trachea midline LUNGS: Clear breath sounds bilaterally. No wheezes HEART: Regular rate and rhythm. Normal S1 and S2, without murmurs ABD: Abdomen soft, nontender. Bowel sounds present EXT: No clubbing cyanosis or edema SKIN: Extensive right leg erythema and swelling. NEURO: Alert and oriented to person, follows commands Vital Signs (last 8hr) Date Time Temp Pulse Resp B/P (MAP) Pulse Ox O2 Delivery O2 Flow Rate FiO2 11/01/24 08:00 97.5 62 21 155/84 97 Nasal Cannula 2.0 11/01/24 03:33 97.9 73 20 137/70 94 Nasal Cannula 2.0 LABS: Hematology Labs: Test 11/01/24 04:25 10/31/24 18:32 Range/Units White Blood Count 9.4 4.8-10.8 K/uL Red Blood Count 4.31 L 4.50-6.20 MIL/uL Hemoglobin 14.6 14.0-18.0 g/dL Hematocrit 43.1 42-54 % Mean Corpuscular Volume 100.0 H 79-99 fL Mean Corpuscular Hemoglobin 33.9 H 27.0-33.0 pg Mean Corpuscular Hemoglobin Concent 33.9 32.0-36.0 g/dL Red Cell Distribution Width 11.9 11.0-15.5 % Platelet Count 291 130-400 K/uL Mean Platelet Volume 8.6 7.5-10.5 fL Immature Granulocyte % (Auto) 5.3 H 0-1 % Neutrophils (%) (Auto) 70.5 40.0-77.0 % Lymphocytes (%) (Auto) 8.9 L 21.0-51.0 % Monocytes (%) (Auto) 12.6 3.0-13.0 % Eosinophils (%) (Auto) 1.5 0.0-8.0 % Basophils (%) (Auto) 1.2 0.0-5.0 % Neutrophils # (Auto) 6.6 1.8-7.7 K/uL Lymphocytes # (Auto) 0.8 L 1.0-4.8 K/uL Monocytes # (Auto) 1.2 H 0.1-1.0 K/uL Eosinophils # (Auto) 0.14 0.00-0.70 K/uL Basophils # (Auto) 0.11 0.00-0.20 K/uL Absolute Immature Granulocyte (auto 0.50 0-1 K/uL Nucleated Red Blood Cells 0.0 0.0-0.19 % White Cell Morphology Comment See comments Chemistry Labs: Test 11/01/24 04:25 10/31/24 18:32 Range/Units Sodium Level 130 L 136-145 mmol/L Potassium Level 4.6 3.5-5.1 mmol/L Chloride Level 98 L 101-111 mmol/L Carbon Dioxide Level 29 21-32 mmol/L Blood Urea Nitrogen 18 7-18 mg/dL Creatinine 1.1 0.5-1.3 mg/dL Glomerular Filtration Rate Calc 71 >90 mL/min Random Glucose 114 H 70-105 mg/dL Total Calcium 8.6 8.5-10.1 mg/dL Lactate Dehydrogenase 255 H 81-234 U/L Procalcitonin < 0.05 L 0.05-0.5 ng/mL Lactic Acid Level 1.5 0.8-2.5 mmol/L DIAGNOSTICS / RADIOLOGY RESULTS: PATIENT: YOSI TOMPKINS MR#: [id number] : 1950 SEX: M AGE: 74 LOCATION: [facility] ORDER 29 STATUS: [facility] REPORT#: [id number] SERVICE 27 REASON: RIGHT LOWER LEG SWELLING ERYTHEMA WITH CALF TENDERNESS ORDERING PHYSICIAN: LACIE MENDOZA MANAGER LABORATORY PROCEDURE: VENOUS UNI - US VENOUS DOPPLER UNILATERAL EXAM: US for Deep Venous Thrombosis, right Lower Extremity. CLINICAL HISTORY: Leg Pain and Swelling TECHNIQUE: Real-time ultrasound scan of the veins of the right lower extremity with color Doppler flow, spectral waveform analysis and compression. COMPARISON: None provided. FINDINGS: DEEP VEINS: The common femoral, superficial femoral, and popliteal veins are echolucent and compressible. There is normal color Doppler flow throughout. The visualized calf veins appear patent. SOFT TISSUES: No popliteal fossa cyst or other abnormalities. IMPRESSION: No deep venous thrombosis evident on right lower extremity examination. /[place] DICTATED BY: LAQUITA SEBASTIAN MD DATE: 10/31/242020 ELECTRONICALLY SIGNED BY: LAQUITA SEBASTIAN MD DATE: 10/31/242020 PLAN NEURO: Minimize central acting medications as possible. Maintain fall precautions, adequate lighting during the day PULMONARY: Supplemental 02 as needed. Maintain aspiration precautions at all times CARDIOVASCULAR: Follow hemodynamics. Vital signs per facility protocol GI & NUTRITION: Continue with nutritional support. Continue stool softeners and laxatives as needed. KIDNEYS & ELECTROLYTES: Strict monitoring of intake, output and overall fluid balance. Avoid nephrotoxic medications to the extent possible. Medications to be dosed according to renal function. Monitor electrolytes and replace as needed ENDOCRINE: Maintain blood glucose between 100-180 at all times. Hypoglycemia protocol in place INFECTIOUS DISEASE: Trend temperature, WBC and procalcitonin level Follow cultures, deescalate antibiotics as soon as possible. Panculture if new onset fever ONCOLOGY/HEMATOLOGY/COAGULATION: Monitor for s/s of bleeding Monitor hemoglobin, coagulation studies as needed SKIN: Pressure ulcer prevention per facility protocol Specialty mattress ORTHO/REHAB: Continue PT/OT Prophylaxis: Continue GI and DVT prophylaxis Code Status: Full Resuscitation Disposition: Home once medically stable for discharge. ATTESTATION BY PHYSICIAN I have seen and examined the patient. I reviewed the documentation, medical decision making, and treatment plan as noted by the mid-level provider above. I agree with the findings and plan of care. Diallo Daniels MD, ECTOR N NP Nov 01, 2024 10:22
--- NOTE | 2024-11-01 18:04 | NUR ---
pt ambulating in hallway
[2024-11-01] MEDS: VANCOMYCIN 1.5 GM/250 ML BAG 250 ML IV SCH (20:54)
[2024-11-01] MEDS: NAPROXEN 375 MG PO SCH (20:59)
[2024-11-02] VITALS (7 sets, daily range): BP systolic 131–154; BP diastolic 67–86; PULSE 63–79; RESP 17–20; TEMP 97.5–98.5; O2SAT 94–98
[2024-11-02 05:16] LABS: NUCLEATED RED BLOOD CELLS 0.0 % (0.0-0.19); PLATELET COUNT (AUTO) 349.0 K/uL (130-400); RED BLOOD CELL COUNT(AUTO) 4.82 MIL/uL (4.50-6.20); RED CELL DISTRIBUTION WIDTH 11.9 % (11.0-15.5); WHITE BLOOD COUNT (AUTO) 9.9 K/uL (4.8-10.8)
[2024-11-02 05:39] LABS: CREATININE 1.0 mg/dL (0.5-1.3); GLOMERULAR FILTR. RATE CALC 79.0 mL/min (>90); GLUCOSE,RANDOM 112.0 mg/dL (70-105); SODIUM SERUM 131.0 mmol/L (136-145); UREA NITROGEN, BLOOD 15.0 mg/dL (7-18)
[2024-11-02] MEDS: (Fluticasone/Umeclidin/Vilanter (Trelegy Ellipta 200-62.5-25MCG) IH SCH (08:30)
[2024-11-02] MEDS: LACTULOSE 20 GM/30 ML UDCUP PO PRN (08:36)
[2024-11-02] MEDS: CLINDAMYCIN IVPB 300MG/50ML 50 ML IV SCH (08:36)
--- NOTE | 2024-11-02 10:04 | PN ---
[facility] PROGRESS NOTE Date Patient Seen: Nov 02, 2024 Time of Visit: 10:01 Supervising Physician: Gus Daniels Primary Care Physician: RANGEL NEGRON (PCP) Outpatient Specialists: [ ] Inpatient Consults: [ ] PROBLEM LIST: Right leg cellulitis Essential Hypertension Hyperlipidemia Obesity - BMI 27.4 PLAN SUMMARY: Supplemental oxygen as needed Continue Cefepime Continue Vanco Continue clindamycin Pain medication as needed Dispo: Home in the next 24-48 hours. INTERVAL HISTORY: This is a 74-year-old male patient who has past medical history that is significant for hypertension and hyperlipidemia. The patient presented to the emergency department with complaint of right leg swelling over the past 2-3 days and now with erythema and tenderness. Per the patient report, he did not have any injury to the lower extremity that may have caused these changes. The patient had a scheduled appointment today with his PCP, unfortunately was not able to be seen and came into the emergency department for further evaluation and management of his condition. Workup in the emergency department showed vital signs with no febrile events. Laboratory data was completely unremarkable. Imaging obtained showed a venous Doppler study that was negative for a DVT. Because of the erythema, swelling and significant tenderness to the extremity, the patient was admitted under observation for further evaluation and management of his condition. At the time of my visit, the patient remained in the emergency department awaiting bed assignment. 11/01 - Patient is seen sitting up in a chair continues to complain of pain to the right lower extremity. Patient continues to be weak and hypoxemic requiring2 L via nasal cannula. Patient reports he uses oxygen as needed at home as well. Patient continues with cellulitis however nursing reports it has improved in comparison to yesterday. No acute changes reported overnight. We will continue current antibiotic treatment for now. We will obtain arterial Dopplers. Vital signs are stable. Labs are within normal limits. We will continue current treatment plan for now. 11/02 - patient is seen sitting up in a chair reports pain to the right lower extremity and use improving daily. On exam, patient's cellulitis continues to improve. Patient is currently on room air he reports he only uses oxygen when he is in severe pain. No signs of acute respiratory distress. No acute changes reported overnight. Patient is requesting if he is able to bring in his medical marijuana as he prefers that versus Dilaudid. Informed the patient to discuss this with hospital administration. Vital signs are stable. Labs are within normal limits. We will plan to DC home in the next 24-48 hours. REVIEW OF SYSTEMS: 12 point ROS reviewed with patient. Pertinent positives mentioned above. Otherwise negative. PHYSICAL EXAM: GENERAL: Alert, weak, awake oriented x 3 HEENT: EOMI, Sclera non icteric, moist mucosa NECK: Supple, no JVD, trachea midline LUNGS: Clear breath sounds bilaterally. No wheezes HEART: Regular rate and rhythm. Normal S1 and S2, without murmurs ABD: Abdomen soft, nontender. Bowel sounds present EXT: No clubbing cyanosis or edema SKIN: Extensive right leg erythema and swelling. NEURO: Alert and oriented to person, follows commands Vital Signs (last 8hr) Date Time Temp Pulse Resp B/P (MAP) Pulse Ox O2 Delivery O2 Flow Rate FiO2 11/02/24 07:49 97.5 72 17 152/74 95 Nasal Cannula 2.0 11/02/24 04:00 98.1 69 20 142/67 96 Room Air LABS: Hematology Labs: Test 11/02/24 05:12 11/01/24 04:25 10/31/24 18:32 Range/Units White Blood Count 9.9 4.8-10.8 K/uL Red Blood Count 4.82 4.50-6.20 MIL/uL Hemoglobin 16.4 14.0-18.0 g/dL Hematocrit 47.7 42-54 % Mean Corpuscular Volume 99.0 79-99 fL Mean Corpuscular Hemoglobin 34.0 H 27.0-33.0 pg Mean Corpuscular Hemoglobin Concent 34.4 32.0-36.0 g/dL Red Cell Distribution Width 11.9 11.0-15.5 % Platelet Count 349 130-400 K/uL Mean Platelet Volume 8.5 7.5-10.5 fL Nucleated Red Blood Cells 0.0 0.0-0.19 % Immature Granulocyte % (Auto) 5.3 H 0-1 % Neutrophils (%) (Auto) 70.5 40.0-77.0 % Lymphocytes (%) (Auto) 8.9 L 21.0-51.0 % Monocytes (%) (Auto) 12.6 3.0-13.0 % Eosinophils (%) (Auto) 1.5 0.0-8.0 % Basophils (%) (Auto) 1.2 0.0-5.0 % Neutrophils # (Auto) 6.6 1.8-7.7 K/uL Lymphocytes # (Auto) 0.8 L 1.0-4.8 K/uL Monocytes # (Auto) 1.2 H 0.1-1.0 K/uL Eosinophils # (Auto) 0.14 0.00-0.70 K/uL Basophils # (Auto) 0.11 0.00-0.20 K/uL Absolute Immature Granulocyte (auto 0.50 0-1 K/uL White Cell Morphology Comment See comments Chemistry Labs: Test 11/02/24 05:12 11/01/24 04:25 10/31/24 18:32 Range/Units Sodium Level 131 L 136-145 mmol/L Potassium Level 5.1 3.5-5.1 mmol/L Chloride Level 96 L 101-111 mmol/L Carbon Dioxide Level 30 21-32 mmol/L Blood Urea Nitrogen 15 7-18 mg/dL Creatinine 1.0 0.5-1.3 mg/dL Glomerular Filtration Rate Calc 79 >90 mL/min Random Glucose 112 H 70-105 mg/dL Total Calcium 9.5 8.5-10.1 mg/dL Procalcitonin < 0.05 L 0.05-0.5 ng/mL Lactate Dehydrogenase 255 H 81-234 U/L Lactic Acid Level 1.5 0.8-2.5 mmol/L DIAGNOSTICS / RADIOLOGY RESULTS: [ ] PLAN NEURO: Minimize central acting medications as possible. Maintain fall precautions, adequate lighting during the day PULMONARY: Supplemental 02 as needed. Maintain aspiration precautions at all times CARDIOVASCULAR: Follow hemodynamics. Vital signs per facility protocol GI & NUTRITION: Continue with nutritional support. Continue stool softeners and laxatives as needed. KIDNEYS & ELECTROLYTES: Strict monitoring of intake, output and overall fluid balance. Avoid nephrotoxic medications to the extent possible. Medications to be dosed according to renal function. Monitor electrolytes and replace as needed ENDOCRINE: Maintain blood glucose between 100-180 at all times. Hypoglycemia protocol in place INFECTIOUS DISEASE: Trend temperature, WBC and procalcitonin level Follow cultures, deescalate antibiotics as soon as possible. Panculture if new onset fever ONCOLOGY/HEMATOLOGY/COAGULATION: Monitor for s/s of bleeding Monitor hemoglobin, coagulation studies as needed SKIN: Pressure ulcer prevention per facility protocol Specialty mattress ORTHO/REHAB: Continue PT/OT Prophylaxis: Continue GI and DVT prophylaxis Code Status: Full Resuscitation Disposition: Home once medically stable for discharge. ATTESTATION BY PHYSICIAN I have seen and examined the patient. I reviewed the documentation, medical decision making, and treatment plan as noted by the mid-level provider above. I agree with the findings and plan of care. Diallo Daniels MD, ECTOR N NP Nov 02, 2024 10:04
--- NOTE | 2024-11-02 14:30 | NUR ---
DCP: HOME Pt currently lives with nemo Bishop [phone]. pt does not have any insecurities with food, jail, and/or utilities. Pt has cane that he uses at home to ambulate. Pt does not have home health or provider services. Pt is able to complete ADLs independently. PCP is Sam Ramos and uses [facility] for any RX needs. At DC pt will want to go home and family can assist with transportation. Addendum: 11/02/24 at 1432 by LUIS ALBERTO MCKEON SS Amended: Links added.
[2024-11-02] MEDS ORDERED: PHARMACY COMMUNICATION MISC SCH (16:00)
--- NOTE | 2024-11-02 16:26 | HMCIMG ---
EXAM: CR Chest, 1 View. CLINICAL HISTORY: effusion COMPARISON: None provided. FINDINGS: LUNGS: Emphysematous lung changes No active infiltrate PLEURAL SPACES: No evidence of pleural effusion or pneumothorax. MEDIASTINUM: Cardiac size and mediastinal contours within normal limits. BONES: Postoperative changes spine IMPRESSION: 1. Emphysematous lung changes 2. No active infiltrate 3. Postoperative changes spine /[place]
--- NOTE | 2024-11-02 17:32 | NUR ---
Nutrition consult per nutrition education Reviewed labs, notes, and medications. On 2 L N.C, on HH, IV abx, sedated, Na 131(L), BG 112 (H) per chart review. 100%PO intake, wt via supine scale, last BM 10/31/24, mild pitting, well nourished per nursing. present during visit. Pt reported he wants more protein in meals, agreeable to ensure chocolate and dutch ice, NKFA, requested MDs permission to use medical marijuana instead of morphine. RD reviewed MNT for wound healing, Pt verbalized understanding. Recommendations: -Provide HH +ensure chocolate BID + dutch ice TID + hi protein -Monitor PO intake -Monitor BM -If no BM >3 days consider stool softener -Monitor electrolytes -Replenish electrolytes per protocol -Monitor wts -Reweigh as able -Order Vit D, vit b-12 labs to rule out deficiencies -Provide b-complex QD -Recommend Pt to follow up with PCP -Monitor goals of care RD to follow + available for consult per protocol Addendum: 11/02/24 at [address] Amended: Links added.
--- NOTE | 2024-11-02 19:47 | HMCSR ---
APPROVED REPORT EXAM: Two-dimensional and M-mode echocardiogram with Doppler and color Doppler. INDICATION ICD: Congestive heart failure 2D Dimensions RVDd3.3 cmLVEF(%)33.9 (>50%)LVED Vol(simp.)120.0 mL IVSd0.7 (0.7-1.1cm)FS(%)16 %LVES Vol(simp.)58.0 mL LVDd5.1 (3.8-5.6cm)LA (2D)4.1 (1.6-4.0cm)LVEF(%, simp.)51 % PWd0.7 (0.7-1.1cm)Ao Root(2D)3.3 (2.0-3.7cm)LA ESV INDEX (BP)26.44 mL/m2 LVDs4.3 (2.5-4.0cm)LVOT diam2.0 (1.8-2.4cm) IVC diam2.2 cm Deformation Strain Apical 4-17.1 % Apical 2-17.1 % Apical 3-18.7 % Global Strain-17.7 % M-Mode Dimensions EPSS1.6 cm LA (MM)3.8 (1.6-4.0cm) Ao Root(MM)3.2 (2.0-3.7cm) Aortic Valve AoV Vmax1.2 m/[place] Peak GR5.4 mmHgLVOT Vmax1.0 m/s AoV VTI0.2 mAo Mean GR2.7 mmHgLVOT VTI0.21 m PALAK (VMAX)2.54 cm2Al P1/2T428 msAVA (VTI) 2.7 cm2 Mitral Valve MV E Vmax60.7 cm/sDECEL Abui995 ms MV A Vmax74.7 cm/sP 1/2 T84 ms E/A ratio0.8MVA (PHT)2.6 cm2 TDI E/E' Medial7.0E/E' Lateral5.3 Medial E' Peak V8.66 cm/sLateral E' Peak V11.44 cm/s Pulmonary Valve PV Vmax1.0 m/sPV VTI0.21 mPV Mean GR2.1 mmHg PV Peak GR3.6 mmHg Tricuspid Valve TR Vmax2.1 m/sRAP (EST) 3 kpBsNUXP08.9 mmHg TR Peak GR17.9 mmHg Left Ventricle The left ventricle is normal size. GLS -18.0% There is normal left ventricular wall thickness. LVEF i s 50-55%. 3D volume 52% Left ventricular filling pattern is normal for age. Right Ventricle The right ventricle is normal size. The right ventricular systolic function is normal. Atria The left atrium size is normal. The right atrium size is normal. Aortic Valve The aortic valve is normal in structure. Trace of aortic regurgitation is present. There is no aortic valvular stenosis. Mitral Valve The mitral valve is normal in structure. There is no mitral valve regurgitation noted. There is no mi tral valve stenosis. Tricuspid Valve The tricuspid valve is normal in structure. There is trace of tricuspid valve regurgitation noted. Pulmonic Valve The pulmonary valve is normal in structure. There is no pulmonic valvular regurgitation. Great Vessels The aortic root is normal in size. The IVC is normal in size and collapses >50% with inspiration. Pericardium There is no pericardial effusion. Other Information Quality : Technically difficult study due to body habitus Conclusion The left ventricle is normal size. LVEF is 50-55%. 3D volume 52% Left ventricular filling pattern is normal for age. The right ventricle is normal size. The right ventricular systolic function is normal. The left atrium size is normal. The right atrium is normal in size. No valvular pathology. There is no pericardial effusion.
[2024-11-02] MEDS: [UNRECOGNIZED DRUG - OTHER] PO SCH (20:24)
[2024-11-03] VITALS: BP 111/67; PULSE 78; RESP 20; TEMP 98.3
[2024-11-03 04:00] VITALS: BP 123/61; PULSE 88; RESP 18; TEMP 98.4
[2024-11-03 05:01] LABS: NUCLEATED RED BLOOD CELLS 0.0 % (0.0-0.19); PLATELET COUNT (AUTO) 370.0 K/uL (130-400); RED BLOOD CELL COUNT(AUTO) 4.66 MIL/uL (4.50-6.20); RED CELL DISTRIBUTION WIDTH 12.0 % (11.0-15.5); WHITE BLOOD COUNT (AUTO) 8.4 K/uL (4.8-10.8)
[2024-11-03 05:18] LABS: CREATININE 1.2 mg/dL (0.5-1.3); GLOMERULAR FILTR. RATE CALC 64.0 mL/min (>90); GLUCOSE,RANDOM 109.0 mg/dL (70-105); PHOSPHORUS 2.9 mg/dL (2.5-4.9); SODIUM SERUM 129.0 mmol/L (136-145); UREA NITROGEN, BLOOD 19.0 mg/dL (7-18)
[2024-11-03 08:00] VITALS: BP 148/77; PULSE 74; RESP 20; TEMP 97.5
[2024-11-03 08:35] VITALS: O2SAT 92
[2024-11-03] MEDS: MAGNESIUM 2GM PREMIX 50ML 50 ML IV PRN (10:59)
[2024-11-03 11:32] VITALS: BP 110/67; PULSE 85; RESP 18; TEMP 97.5
[2024-11-03 16:00] VITALS: BP 119/69; PULSE 80; RESP 19; TEMP 97.7
--- NOTE | 2024-11-03 18:24 | DS ---
[facility] DISCHARGE SUMMARY Date Patient Seen: Nov 03, 2024 Time of Visit: 18:22 Supervising Physician: Dr. Diallo Daniels Primary Care Physician: Dr. Sam Lutz Outpatient Specialists: Inpatient Consults: PROBLEM LIST: Right leg cellulitis Essential Hypertension Hyperlipidemia Obesity - BMI 27.4 HPI (per admitting provider) This is a 74-year-old male patient who has past medical history that is significant for hypertension and hyperlipidemia. The patient presented to the emergency department with complaint of right leg swelling over the past 2-3 days and now with erythema and tenderness. Per the patient report, he did not have any injury to the lower extremity that may have caused these changes. The patient had a scheduled appointment today with his PCP, unfortunately was not able to be seen and came into the emergency department for further evaluation and management of his condition. Workup in the emergency department showed vital signs with no febrile events. Laboratory data was completely unremarkable. Imaging obtained showed a venous Doppler study that was negative for a DVT. Because of the erythema, swelling and significant tenderness to the extremity, the patient was admitted under observation for further evaluation and management of his condition. At the time of my visit, the patient remained in the emergency department awaiting bed assignment. HOSPITAL COURSE: 11/01 - Patient is seen sitting up in a chair continues to complain of pain to the right lower extremity. Patient continues to be weak and hypoxemic requiring2 L via nasal cannula. Patient reports he uses oxygen as needed at home as well. Patient continues with cellulitis however nursing reports it has improved in comparison to yesterday. No acute changes reported overnight. We will continue current antibiotic treatment for now. We will obtain arterial Dopplers. Vital signs are stable. Labs are within normal limits. We will continue current treatment plan for now. 11/02 - patient is seen sitting up in a chair reports pain to the right lower extremity and use improving daily. On exam, patient's cellulitis continues to improve. Patient is currently on room air he reports he only uses oxygen when he is in severe pain. No signs of acute respiratory distress. No acute changes reported overnight. Patient is requesting if he is able to bring in his medical marijuana as he prefers that versus Dilaudid. Informed the patient to discuss this with hospital administration. Vital signs are stable. Labs are within normal limits. We will plan to DC home in the next 24-48 hours. 11/03-the patient was seen and assessed while resting in bed, head of the bed was elevated, watching television friendly and conversant. There was no family members present nor friends at the time of my assessment, accompanied by the patient's bedside nurse. Discussed with the patient plans for the day. Patient's vital signs were stable. Patient has been restarted on home medications for the management of hypertension hyperlipidemia. Patient is on IV antibiotics anticipate the patient being switched to p.o. antibiotics to transitioned to the discharge status. Patient is redness there has been marked on his right lower extremity has diminished, patient has no pain, is able to ambulate without any pain at this time. Patient received education to avoid swimming, lakes, rigors, pools, waiting pools, until oral antibiotics has been completed. Patient agrees to follow up with primary care provider, Dr. Sam Lutz, in 2-3 days for a wellness check. The patient verbalized understanding with the plan and vitals to continue with the plan. At this time the patient nor spouse has no concerns or issues, the patient is medically cleared and can be discharged to home with follow up with primary care provider. The patient's pharmacy has been verified, prescriptions for two antibiotics has been sent to the patient's pharmacy with the appropriate education provided. ACTIVE PROBLEM LIST FOR THE HOSPITALIZATION: Right leg cellulitis CHRONIC PROBLEMS: continue previous management per PCP unless otherwise indicated Essential Hypertension Hyperlipidemia Obesity - BMI 27.4 HOME HEALTH PHYSICAL THERAPIST FINDINGS/RECOMMENDATIONS: [ ] PROCEDURES: as mentioned above DISCHARGE MEDICATIONS: Pt hemodynamically stable and afebrile at time of discharge. PCP notified of patients admission, hospital course and discharge. PHYSICAL EXAM: GENERAL: Alert, weak, awake oriented x 3 HEENT: EOMI, Sclera non icteric, moist mucosa NECK: Supple, no JVD, trachea midline LUNGS: Clear breath sounds bilaterally. No wheezes HEART: Regular rate and rhythm. Normal S1 and S2, without murmurs ABD: Abdomen soft, nontender. Bowel sounds present EXT: No clubbing cyanosis or edema SKIN: Extensive right leg erythema and swelling. NEURO: Alert and oriented to person, follows commands FOLLOW-UP: Dr. Sam Lutz Follow-up with PCP in 2-3 days RECOMMENDATIONS: Augmentin 875 mg p.o., b.i.d. for 10 days, 20 tablets. Metronidazole 500 mg p.o. t.i.d. for 10 days, 30 tablets. See Discharge Instructions This case was seen and discussed with my supervising physician. More than 45 minutes spent on discharge process, including evaluation of the patient, discussion with nursing staff, medication reconciliation and follow-up appointments ALTON GUILLEN NP Nov 03, 2024 18:24
--- NOTE | 2024-11-03 18:47 | NUR ---
DISCHARGE Patient discharge orders placed - patient provided with discharge instructions including follow up information, medication information, and activity information. Patient was provided paper prescription, however stated that their pharmacy [facility] will not accepted paper prescriptions and they had difficulty last time obtaining medications. Medications called into [facility] pharmacy and verified they will fill medications. IV removed. Patient discharged home with belongings.
== END 2024-11-03 18:40 | disposition home or self-care (01) | DRG 603 ==
LOC: EDH 18:19 → UNDOADMIN 20:06 → EDHIP 20:06 → OBSVTOIN 20:06 → INTOOBSV 20:07 → EDHIP 20:07 → UNDOADMOB 20:07 → EDHIP 22:05 → 3BH 22:05
PROVIDERS: ADMIT Internal Medicine Critical Care Medicine; ATTEND Internal Medicine Critical Care Medicine
DX: L03.115 Cellulitis of right lower limb (principal); E66.9 Obesity, unspecified; E78.00 Pure hypercholesterolemia, unspecified; I12.9 Hypertensive chronic kidney disease with stage 1 through stage 4 chronic kidney disease, or unspecified chronic kidney disease; N18.2 Chronic kidney disease, stage 2 (mild); E87.8 Other disorders of electrolyte and fluid balance, not elsewhere classified; Z79.899 Other long term (current) drug therapy; Z68.27 Body mass index [BMI] 27.0-27.9, adult
CPT/HCPCS: 36415; 71045; 80048; 83605; 83615; 83735; 84100; 84145; 85025; 85027; 87040; 93306; 93356; 93971; 96365; 99285; G0378; J0692; J1171; J1650; J2270; J2405; J2543; J3475; J3490; J3370

== ENCOUNTER → 2024-11-25 | Outpatient (CLI) | payer MEDICARE ==
[~2024-11-25] MED LIST changes: -CEPH500B PO; +FLUT1BLS15 IH; +LOSA100T59 PO; +NAPR-1192 PO; +ROPI5TAB24 PO; +ROSU10TA72 PO
--- NOTE | 2024-11-26 07:31 | HMCIMG ---
EXAMINATION: DUPLEX ULTRASOUND EXAMINATION OF THE BILATERAL LOWER EXTREMITY ARTERIES. CLINICAL HISTORY: Decreased pedal pulses. COMPARISON: Bilateral lower extremity arterial doppler dated 06/01/2024. FINDINGS: Peak systolic velocities within the right lower arteries are as follows: Common femoral artery: 126 cm/s. Superficial femoral artery: 89 cm/s at proximal, 87 cm/s at mid, and 71 cm/s at distal segments. Popliteal artery: 108 cm/s at proximal and 59 cm/s at distal segments. Posterior tibial artery: 55 cm/s. Anterior tibial artery: 22 cm/s. Dorsalis pedis artery: 16 cm/s. The right lower limb arteries demonstrate triphasic to biphasic waveforms in all arteries. Peak systolic velocities within the left lower arteries are as follows: Common femoral artery: 110 cm/s. Superficial femoral artery: 73 cm/s at proximal, 95 cm/s at mid, and 99 cm/s at distal segments. Popliteal artery: 69 cm/s at proximal and 64 cm/s at distal segments. Posterior tibial artery: 87 cm/s. Anterior tibial artery: 58 cm/s. Dorsalis pedis artery: 33 cm/s. The left lower limb arteries demonstrate triphasic to biphasic waveforms in all arteries. There is intimal wall thickening and multilevel atherosclerosis in both the lower limb arteries. IMPRESSION: Mild intimal wall thickening and multilevel atherosclerosis in both the lower limb arteries. Both lower limb arteries demonstrate triphasic to biphasic waveforms. No flow limiting lesions. /[place]
== END | disposition home or self-care (01) ==
LOC: RAH 09:39
PROVIDERS: ATTEND Family Medicine
DX: I70.90 Unspecified atherosclerosis (principal); R09.89 Other specified symptoms and signs involving the circulatory and respiratory systems
CPT/HCPCS: 93925